=== PATIENT | female | born 1940 | race Caucasian/White ===

== ENCOUNTER 2018-08-16 12:15 | Emergency (ER) | payer MEDICARE ==
[~2018-08-16] VITALS: Ht 167.6 cm; Wt 68.5 kg
[2018-08-16] MEDS ORDERED: MONT10TA2 (12:25)
[2018-08-16] MEDS ORDERED: PRAV40TA2 (12:25)
[2018-08-16] MEDS ORDERED: METF500T4 (12:25)
[2018-08-16] MEDS ORDERED: AMLO5TAB6 (12:25)
[2018-08-16] MEDS ORDERED: FAMO40TA3 (12:25)
[2018-08-16] MEDS ORDERED: LOSA100T5 (12:25)
[2018-08-16 18:08] LABS: HEMATOCRIT 37.9 % (36.0-47.0); HEMOGLOBIN 12.6 g/dl (12.0-15.5); MEAN CORPUSCULAR HEMOGLOBIN 30.2 pg (27.0-33.0); MEAN CORPUSCULAR HGB CONC 33.2 g/dl (32.0-36.5); MEAN CORPUSCULAR VOLUME 90.9 fl (80.0-96.0); PLATELET COUNT, AUTOMATED 308 10^3/uL (150-450); RED BLOOD COUNT 4.17 10^6/uL (4.00-5.40); WHITE BLOOD COUNT 8.1 10^3/uL (4.0-10.0)
[2018-08-16] MEDS ORDERED: ACETAMINOPHEN 325 MG TAB PO ONE (18:15)
[2018-08-16] MEDS ORDERED: ISOVUE-370 76% 100ML VIAL (Q9967) As Ordered ONE (18:35)
[2018-08-16 18:45] LABS: ERYTHROCYTE SEDIMENTATION RATE 69 mm/hr (0-30)
--- NOTE | 2018-08-16 19:27 | REPVR ---
EXAM: CT Head Without Contrast EXAM DATE/TIME: 08/16/2018 6:41 PM CLINICAL HISTORY: 78 years old, female; Pain; Headache; Additional info: Headaches TECHNIQUE: Imaging protocol: Axial computed tomography images of the head without contrast. Coronal and sagittal reformatted images were created and reviewed. Radiation optimization: All CT scans at this facility use at least one of these dose optimization techniques: automated exposure control; mA and/or kV adjustment per patient size (includes targeted exams where dose is matched to clinical indication); or iterative reconstruction. COMPARISON: No relevant prior studies available. FINDINGS: Brain: Normal. No hemorrhage. Unremarkable white matter. No mass effect. Ventricles: Normal. No ventriculomegaly. Bones/joints: Unremarkable. No acute fracture. Sinuses: Retained secretions in the left frontal sinus consistent with sinusitis. Mastoid air cells: Visualized mastoid air cells are well aerated. No mastoid effusion. Soft tissues: Unremarkable. IMPRESSION: 1. Retained secretions in the left frontal sinus consistent with sinusitis. 2. No acute intracranial findings. Electronically signed by: Lewis Cabral On 08/16/2018 19:26:44 PM
--- NOTE | 2018-08-16 19:30 | REPVR ---
EXAM: CT Angiography Head With Contrast EXAM DATE/TIME: 08/16/2018 6:41 PM CLINICAL HISTORY: 78 years old, female; Pain; Headache; Additional info: Eye pain/new onset left sided headed/ right carotid bruit TECHNIQUE: Imaging protocol: Axial computed tomographic angiography images of the head with intravenous contrast using CT angiography protocol. Coronal and sagittal reformatted images were created and reviewed. 3D rendering: MIP and 3D reconstructed images were created and reviewed. Radiation optimization: All CT scans at this facility use at least one of these dose optimization techniques: automated exposure control; mA and/or kV adjustment per patient size (includes targeted exams where dose is matched to clinical indication); or iterative reconstruction. Contrast material: ISOVUE 370; Contrast volume: 100 ml; Contrast route: IV; COMPARISON: No relevant prior studies available. FINDINGS: Right internal carotid artery: Atherosclerotic changes demonstrated in the right intracranial carotid artery. No significant stenosis. Right anterior cerebral artery: Unremarkable. No occlusion or significant stenosis. No aneurysm. Right middle cerebral artery: Unremarkable. No occlusion or significant stenosis. No aneurysm. Right posterior cerebral artery: Persistent origin of the right posterior cerebral artery. Right vertebral artery: Unremarkable. No occlusion or significant stenosis. No aneurysm. Left internal carotid artery: Atherosclerotic changes demonstrated in the left intracranial carotid artery. No significant stenosis. Left anterior cerebral artery: Unremarkable. No occlusion or significant stenosis. No aneurysm. Left middle cerebral artery: Unremarkable. No occlusion or significant stenosis. No aneurysm. Left posterior cerebral artery: Persistent origin of the left posterior cerebral artery. Left vertebral artery: Unremarkable. No occlusion or significant stenosis. No aneurysm. 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 IMPRESSION: 1. Atherosclerotic changes demonstrated in the right intracranial carotid artery. No significant stenosis. 2. Atherosclerotic changes demonstrated in the left intracranial carotid artery. No significant stenosis. 3. 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 Electronically signed by: Lewis Cabral On 08/16/2018 19:29:46 PM
--- NOTE | 2018-08-16 19:34 | REPVR ---
EXAM: CT Angiography Neck With Contrast EXAM DATE/TIME: 08/16/2018 6:41 PM CLINICAL HISTORY: 78 years old, female; Pain; Headache; Additional info: Eye pain/new onset left sided headed/ right carotid bruit TECHNIQUE: Imaging protocol: Axial computed tomographic angiography images of the neck with intravenous contrast using CT angiography protocol. Coronal and sagittal reformatted images were created and reviewed. 3D rendering: MIP and 3D reconstructed images were created and reviewed. Radiation optimization: All CT scans at this facility use at least one of these dose optimization techniques: automated exposure control; mA and/or kV adjustment per patient size (includes targeted exams where dose is matched to clinical indication); or iterative reconstruction. Contrast material: ISOVUE 370; Contrast volume: 100 ml; Contrast route: IV; COMPARISON: No relevant prior studies available. FINDINGS: VASCULATURE: Right common carotid artery: Unremarkable. No stenosis. No dissection or occlusion. Right internal carotid artery: There is mild atherosclerotic changes in the proximal right ICA estimated at less than 50 % narrowing which is consistent with a mild stenosis using NASCET criteria. Right external carotid artery: Unremarkable. No occlusion or stenosis. Right vertebral artery: Hypoplastic V4 segment right vertebral artery. Left common carotid artery: Unremarkable. No stenosis. No dissection or occlusion. Left internal carotid artery: Unremarkable. Left external carotid artery: Unremarkable. No stenosis. No dissection or occlusion. Left vertebral artery: Hypoplastic V4 segment left vertebral artery. Aorta: The aorta demonstrates mild atherosclerotic calcification. Other vasculature: Mild atherosclerotic changes in the brachiocephalic artery without significant stenosis. NECK: Bones/joints: Degenerative spondylosis cervical spine. Soft tissues: Normal. No significant soft tissue swelling. IMPRESSION: 1. There is mild atherosclerotic changes in the proximal right ICA estimated at less than 50 % narrowing which is consistent with a mild stenosis using NASCET criteria. 2. Unremarkable left internal carotid artery. 3. Hypoplastic V4 segment both vertebral arteries. COMMENT: Reference per NASCET criteria for degree of stenosis: Mild: less than 50% stenosis. Moderate: 50-69% stenosis. Severe: 70-94% stenosis. Near occlusion: 95-99% stenosis. Electronically signed by: Lewis Cabral On 08/16/2018 19:34:19 PM
[2018-08-16] MEDS ORDERED: PRED10TA2 PO (20:14)
[2018-08-16] MEDS ORDERED: AUGM875T28 PO (20:14)
[2018-08-16 20:41] VITALS: BP 165/74
--- NOTE | 2018-08-21 11:42 | ED PDOC ---
Post-Departure Follow-Up cta neck faxed formal report for fu Nelson Lan MD Aug 21, 2018 11:42
== END 2018-08-16 20:40 | disposition home or self-care (01) ==
LOC: M ED 12:15
DX: J01.10 Acute frontal sinusitis, unspecified (principal); I65.21 Occlusion and stenosis of right carotid artery; E11.9 Type 2 diabetes mellitus without complications; I10 Essential (primary) hypertension; E78.5 Hyperlipidemia, unspecified
CPT/HCPCS: 70450; 70496; 70498; 85027; 85652; 86140; 99284; Q9967

== ENCOUNTER → 2022-07-05 | Outpatient (CLI) | payer MEDICARE ==
[~2022-07-05] MED LIST: AMLO1TAB24; AUGM875T28 PO; FAMO40TA3; LOSA100T5; METF-838; MONT10TA97; PRAV40TA2; PRED10TA2 PO
== END ==
LOC: M RAD 12:24
PROVIDERS: ATTEND Nurse Practitioner Family
DX: I63.232 Cerebral infarction due to unspecified occlusion or stenosis of left carotid arteries (principal)

== ENCOUNTER → 2024-02-29 | Outpatient (CLI) | payer MEDICARE | LOC: M RAD 10:27 | PROVIDERS: ATTEND Physician Assistant | DX: S63.591A Other specified sprain of right wrist, initial encounter (principal); X58.XXXA Exposure to other specified factors, initial encounter; Y92.9 Unspecified place or not applicable ==